=== PATIENT | female | born 1985 | race Caucasian/White ===

== ENCOUNTER 2020-05-21 14:07 | Emergency (ER) | payer OTHER, MEDICAID, SELFPAY ==
[~2020-05-21] VITALS: Ht 167.6 cm; Wt 81.6 kg
[2020-05-21 14:23] VITALS: Ht 167.6 cm; Wt 81.6 kg
[2020-05-21 16:01] LABS: PLATELET COUNT 252 x10^3mcL (179-408)
[2020-05-21 16:03] LABS: UA SPECIFIC GRAVITY 1.025 (1.005-1.035); microscopic required? YES; urine erythrocyte TRACE (NEGATIVE)
[2020-05-21 16:05] LABS: RED CELL DISTRIBUTION WIDTH 15.2 % (12.3-17.7)
[2020-05-21 16:11] LABS: CALCIUM 8.9 mg/dL (8.5-10.1); CARBON DIOXIDE 25.8 mmol/L (21-32); CHLORIDE SERUM 102 mmol/L (98-107); CREATININE SERUM 0.7 mg/dL (0.6-1.0); GFR1 > 60 mL/min; GLUCOSE SERUM 107 mg/dL (74-106); POTASSIUM SERUM 3.4 mmol/L (3.5-5.1); SODIUM SERUM 133 mmol/L (136-145)
[2020-05-21 16:15] LABS: ALKALINE PHOSPHATASE 85 U/L (46-116); ALT/SGPT 19 U/L (14-59); AST/SGOT 17 U/L (15-37); BILIRUBIN TOTAL 0.3 mg/dL (0.20-1.00); LIPASE 142 IU/L (73-393); TOTAL PROTEIN, SERUM 7.8 g/dL (6.4-8.2)
[2020-05-21 16:20] LABS: ALBUMIN 3.2 g/dL (3.4-5.0)
[2020-05-21 16:21] LABS: BAND NEUTROPHIL 7 % (0-10); BASOPHIL 0 % (0-2); MONOCYTE 6 % (0-7); SEGMENTED NEUTROPHILS 67 % (37-75)
[2020-05-21 16:22] LABS: PLATELET MORPHOLOGY PLATELETS NORMAL; rbc morphology (normal/abnorm) NORMAL (NORMAL)
[2020-05-21 19:17] VITALS: BP 112/67
== END 2020-05-21 19:17 | disposition home or self-care (01) ==
LOC: ED 14:07
PROVIDERS: Student in an Organized Health Care Education/Training Program
DX: K85.90 Acute pancreatitis without necrosis or infection, unspecified (principal); B34.9 Viral infection, unspecified; E03.9 Hypothyroidism, unspecified; Z98.890 Other specified postprocedural states
CPT/HCPCS: 84439; J7030; Q9967